=== PATIENT | male | born 1990 | race Caucasian/White ===

== ENCOUNTER → 2017-10-12 | Outpatient (CLI) | payer OTHER | LOC: LAB 14:41 | PROVIDERS: ATTEND Emergency Medicine | DX: Z77.21 Contact with and (suspected) exposure to potentially hazardous body fluids (principal) | CPT/HCPCS: 36415; 86703; 86803 ==

== ENCOUNTER → 2018-01-04 | Outpatient (REF) | LOC: AUD 09:21 | PROVIDERS: ATTEND Internal Medicine | DX: Z01.10 Encounter for examination of ears and hearing without abnormal findings (principal) | CPT/HCPCS: 92552 ==